=== PATIENT | male | born 1925 | race Hispanic/Latino ===

== ENCOUNTER → 2017-05-01 | Outpatient (CLI) | payer MEDICARE ==
[2017-05-01 12:24] LABS: FOLATE 14.8 ng/mL (7.0-15.4)
--- NOTE | 2017-05-01 20:21 | Diagnostic Imaging Report ---
EXAMINATION: Head CT without contrast. HISTORY:Dementia. COMPARISON:None. TECHNIQUE: Multidetector axial images were obtained from the foramen magnum to the vertex without contrast. The images were reconstructed using brain and bone algorithms. Thin section brain images were reformatted into coronal and sagittal planes. Intravenous contrast: None IMAGE QUALITY: Acceptable. FINDINGS: Skull/scalp: No lytic or blastic. lesions. No surgical changes. Parenchyma: Nonspecific few, scattered supratentorial white matter hypodensity are likely related to small vessel ischemic changes. No acute hemorrhage, mass or acute major vascular territorial infarct. Arteries: Atherosclerotic calcification in bilateral carotid siphon. Dural sinuses: No abnormal density suggestive of thrombosis. Ventricles: Mild compensated dilatation due to volume loss. Extra-axial spaces: No abnormal density. Brain volume: Moderate generalized cerebral volume loss, with mild predominant involvement of the anterior and medial aspect of bilateral temporal lobes. Craniocervical junction: No mass, Chiari malformation, or basilar invagination. Sella: No mass. Paranasal/mastoid sinuses: Mild mucosal thickening in right ethmoid sinus. IMPRESSION: 1. No acute intracranial abnormality, particularly no acute hemorrhage, mass or acute major vascular territorial infarct. 2. Mild supratentorial white matter microvascular ischemic changes. 3. Moderate generalized cerebral volume loss, with mild predominant involvement of the anterior and medial aspect of bilateral temporal lobes, which can be associated with Alzheimer's disease in appropriate clinical setting. Signed by: Dr. Kate Morgan M.D. on 05/01/2017 8:17 PM
== END ==
LOC: CT 10:38
PROVIDERS: ATTEND Specialist
DX: F03.90 Unspecified dementia, unspecified severity, without behavioral disturbance, psychotic disturbance, mood disturbance, and anxiety (principal)
CPT/HCPCS: 70450; 82607; 82746